=== PATIENT | male | born 1990 | race Caucasian/White ===

== ENCOUNTER 2022-03-20 02:44 | Emergency (ER) | payer SELFPAY ==
--- NOTE | 2022-03-20 04:42 | NUR ---
Patient was called to be triaged but was not present in the waiting room or outside of ER.
--- NOTE | 2022-03-20 05:30 | NUR ---
Patient was called to be triaged but was not present in the waiting room or outside of ER.
--- NOTE | 2022-03-20 06:09 | NUR ---
Patient was called to be triaged but wasd not present in the waiting room or outside of ER. Patient was not traiged or seen by [facility]MD.
== END 2022-03-20 06:10 | disposition left against medical advice (07) ==
LOC: ER 02:52
DX: Z53.21 Procedure and treatment not carried out due to patient leaving prior to being seen by health care provider (principal)